=== PATIENT | female | born 1960 | race Caucasian/White ===

== ENCOUNTER 2023-01-23 10:53 | Emergency (ER) | payer OTHER, SELFPAY ==
[2023-01-23 10:59] VITALS: BP 121/83; PULSE 91; RESP 18; TEMP 36.7; O2SAT 88; BMI 21.5
--- NOTE | 2023-01-23 11:16 | XR_ITS ---
The [address] [address] Patient Name: THI VERA MRN: [id number] date: 1960 Sex: F Assigned Patient Location: ER Current Patient Location: ER Accession/Order Number: [id number] Exam Date: 01/23/2023 11:45 Report Date: 01/23/2023 13:19 At the request of: MIESHA BLACK Procedure: XR foot RT min 3V PROCEDURE: XR ankle RT min 3V, XR foot RT min 3V HISTORY: ankle injury ; acute right ankle and foot pain after falling COMPARISON: None. FINDINGS: BONES:Complete loss of the ankle joint space with possible osseous union. Moderate degenerative changes the midfoot and the second through 5th tarsal-metatarsal joints. Mild degenerative changes throughout the metatarsophalangeal and interphalangeal joints. SOFT TISSUES:Soft tissue swelling surrounding the ankle. EFFUSION:None visible. OTHER: Negative. XR/XR foot RT min 3V IMPRESSION: 1. Marked degenerative changes of the ankle; no appreciable acute abnormality. 2. Moderate degenerative changes of the foot; no appreciable acute abnormality. Electronically authenticated by: SHAWANDA PATEL Date: 01/23/2023 13:19
--- NOTE | 2023-01-23 11:16 | XR_ITS ---
The [address] [address] Patient Name: THI VERA MRN: [id number] date: 1960 Sex: F Assigned Patient Location: ER Current Patient Location: ER Accession/Order Number: [id number] Exam Date: 01/23/2023 11:45 Report Date: 01/23/2023 13:19 At the request of: MIESHA BLACK Procedure: XR ankle RT min 3V PROCEDURE: XR ankle RT min 3V, XR foot RT min 3V HISTORY: ankle injury ; acute right ankle and foot pain after falling COMPARISON: None. FINDINGS: BONES:Complete loss of the ankle joint space with possible osseous union. Moderate degenerative changes the midfoot and the second through 5th tarsal-metatarsal joints. Mild degenerative changes throughout the metatarsophalangeal and interphalangeal joints. SOFT TISSUES:Soft tissue swelling surrounding the ankle. EFFUSION:None visible. OTHER: Negative. XR/XR ankle RT min 3V IMPRESSION: 1. Marked degenerative changes of the ankle; no appreciable acute abnormality. 2. Moderate degenerative changes of the foot; no appreciable acute abnormality. Electronically authenticated by: SHAWANDA PATEL Date: 01/23/2023 13:19
--- NOTE | 2023-01-23 11:16 | XR_ITS ---
The [address] [address] Patient Name: THI VERA MRN: [id number] date: 1960 Sex: F Assigned Patient Location: ER Current Patient Location: ER Accession/Order Number: [id number] Exam Date: 01/23/2023 11:45 Report Date: 01/23/2023 12:50 At the request of: MIESHA BLACK Procedure: XR sacrum coccyx min 2V STUDY: XR sacrum coccyx min 2V, [id number] HISTORY: fall COMPARISON: None FINDINGS: No acute fracture, dislocation, or suspicious osseous lesion. Alignment at the sacrum and coccyx are within normal limits. Bilateral hip replacements. XR/XR sacrum coccyx min 2V IMPRESSION: No acute displaced fracture of the sacrum or coccyx. If there is clinical concern for nondisplaced fracture then recommend noncontrast CT of the pelvis for further evaluation. Electronically authenticated by: STEPHANIE HARRIS Date: 01/23/2023 12:50
--- NOTE | 2023-01-23 12:53 | ED.GENADUL1 ---
HPI - General Adult General Chief complaint: Extremity Injury, Lower Stated complaint: LOWER EXTREMITY INJURY RIGHT ANKLE Time Seen by Provider: 01/23/23 11:00 Source: patient Mode of arrival: Wheelchair Limitations: no limitations History of Present Illness HPI narrative: The patient fell yesterday while at a concert - she said that there was a lip on the floor that she tripped on - and landed onto her tailbone, also injured her right foot and right ankle as she fell. No other injuries. Pain localized to the medial left buttock and the medial and lateral right ankle and top of the right foot. She had prior right ankle fusion. Related Data Home Medications Medication Instructions Recorded Confirmed folic acid 1 mg tablet 1 mg PO DAILY 01/23/23 01/23/23 methotrexate sodium 2.5 mg tablet 2.5 mg PO .weekly 01/23/23 01/23/23 sulindac 200 mg tablet 200 mg PO DAILY 01/23/23 01/23/23 Allergies Allergy/AdvReac Type Severity Reaction Status Date / Time cephalexin [From Keflex] AdvReac Intermediate Verified 01/23/23 10:58 PFSH PFS Social History Smoking status: Never smoker Exam Narrative Exam Narrative: Nurses notes and vital signs reviewed and patient is not hypoxic. afebrile General: Well-appearing and in no apparent distress. Skin: Warm, dry, no pallor noted. No rash. Head: Normocephalic, atraumatic. Cardiovascular: Normal peripheral perfusion Respiratory: No accessory muscle use or respiratory distress. Back: No midline thoracic or lumbar vertebral tenderness. Medial left buttock. Musculoskeletal: Tenderness to the medial and lateral malleolus of the right ankle. Tenderness to the top of the right foot. No achilles deficit or heel tenderness. Patient has limited right ankle ROM at baseline. No right calf or popliteal tenderness, no right lower extremity edema/swelling Neurological: A&O x4. No cranial nerve dysfunction observed. No truncal ataxia. Moves all extremities. Sensation intact. Psychiatric: Cooperative and interactive. Normal mood and affect. Constitutional Vital Signs, click to edit/add: Last Vital Signs Temp 98.1 F 01/23/23 10:59 Pulse 91 H 01/23/23 10:59 Resp 18 01/23/23 10:59 BP 121/83 01/23/23 10:59 Pulse Ox 88 L 01/23/23 10:59 Course Vital Signs Vital signs: Vital Signs Temperature 98.1 F 01/23/23 10:59 Pulse Rate 91 H 01/23/23 10:59 Respiratory Rate 18 01/23/23 10:59 Blood Pressure 121/83 01/23/23 10:59 Pulse Oximetry 88 L 01/23/23 10:59 Temperature 98.1 F 01/23/23 10:59 Pulse Rate 91 H 01/23/23 10:59 Respiratory Rate 18 01/23/23 10:59 Blood Pressure 121/83 01/23/23 10:59 Pulse Oximetry 88 L 01/23/23 10:59 Medical Decision Making MDM Narrative Medical decision making narrative: XRays per radiologist did not reveal any acute fracture, dislocation or other worrisome findings. Patient given reassurance and the ED nurse applied an leonard wrap tot he right ankle - patient neurovascularly intact distally afterward. She was instructed to take tylenol and motrin as needed for pain. Imaging Data xr sacrum/coccyx: Attestation: I have reviewed the pertinent imaging results. Radiologist's impression: Patient Name: THI VERA MRN: [id number] date: 1960 Sex: F Assigned Patient Location: ER Current Patient Location: ER Accession/Order Number: [id number] Exam Date: 01/23/2023 11:45 Report Date: 01/23/2023 12:50 At the request of: MIESHA BLACK Procedure: XR sacrum coccyx min 2V STUDY: XR sacrum coccyx min 2V, [id number] HISTORY: fall COMPARISON: None FINDINGS: No acute fracture, dislocation, or suspicious osseous lesion. Alignment at the sacrum and coccyx are within normal limits. Bilateral hip replacements. IMPRESSION: No acute displaced fracture of the sacrum or coccyx. If there is clinical concern for nondisplaced fracture then recommend noncontrast CT of the pelvis for further evaluation. Electronically authenticated by: STEPHANIE HARRIS Date: 01/23/2023 12:50 xr foot & ankle: Radiologist's impression: Patient Name: THI VERA MRN: [id number] date: 1960 Sex: F Assigned Patient Location: ER Current Patient Location: ER Accession/Order Number: [id number] Exam Date: 01/23/2023 11:45 Report Date: 01/23/2023 13:19 At the request of: MIESHA WAYNE Procedure: XR foot RT min 3V PROCEDURE: XR ankle RT min 3V, XR foot RT min 3V HISTORY: ankle injury ; acute right ankle and foot pain after falling COMPARISON: None. FINDINGS: BONES:Complete loss of the ankle joint space with possible osseous union. Moderate degenerative changes the midfoot and the second through 5th tarsal-metatarsal joints. Mild degenerative changes throughout the metatarsophalangeal and interphalangeal joints. SOFT TISSUES:Soft tissue swelling surrounding the ankle. EFFUSION:None visible. OTHER: Negative. IMPRESSION: 1. Marked degenerative changes of the ankle; no appreciable acute abnormality. 2. Moderate degenerative changes of the foot; no appreciable acute abnormality. Electronically authenticated by: SHAWANDA PATEL Date: 01/23/2023 13:19 Discharge Plan Discharge Chief Complaint: Extremity Injury, Lower Clinical Impression: Contusion of buttock, Ankle sprain and strain Patient Disposition: Home, Self-Care Time of Disposition Decision: 13:53 Prescriptions / Home Meds: No Action folic acid 1 mg tablet 1 mg PO DAILY methotrexate sodium 2.5 mg tablet 2.5 mg PO .weekly sulindac 200 mg tablet 200 mg PO DAILY Instructions: Ankle Sprain (ED), Contusion in Adults (ED) Stand Alone Forms: Portal Instructions Referrals: FRANCHESKA ROGERS [Primary Care Provider] - 1 week
== END 2023-01-23 13:45 | disposition home or self-care (01) ==
PROVIDERS: Emergency Provider Emergency Medicine; PCP Family Medicine
DX: S93.401A Sprain of unspecified ligament of right ankle, initial encounter (principal); S96.911A Strain of unspecified muscle and tendon at ankle and foot level, right foot, initial encounter; W01.10XA Fall on same level from slipping, tripping and stumbling with subsequent striking against unspecified object, initial encounter; S30.0XXA Contusion of lower back and pelvis, initial encounter; Z98.1 Arthrodesis status; Z79.899 Other long term (current) drug therapy
CPT/HCPCS: 72220; 73610; 73630; 99284

== ENCOUNTER 2023-05-06 10:42 | Outpatient (OUT) | payer OTHER, SELFPAY ==
--- OUTSIDE RECORDS SUMMARY | 2023-05-06 10:49 | XMS_ITS | CCD ---
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 Repository Problems Problem Classification Problem Date Documented Da te Episodic/Chronic Calculus of urinary tract (1 source) Personal history of urinary calculi; Translations: [PERSONAL HISTORY OF URINARY CALCULI] Onset: 06-05-2022 Episodic E Codes: Fall (1 source) Fall from other furniture, initial encounter; Translations: [FALL FROM OTHER FURNITURE INITIAL] Onset: 06-05-2022 Episodic Nonspecific chest pain (3 sources) Other chest pain; Translations: [OTHER CHEST PAIN] Onset: 06-04-2022 Episodic Other aftercare (1 source) Other jail (current) drug therapy; Translations: [OTH AUTO JOB ESTIMATOR CURRENT DRUG THERAPY] Onset: 06-05-2022 Episodic Other connective tissue disease (1 source) Presence of artificial hip joint, bilateral; Translations: [PRESENCE ARTIFICIAL HIP JOINT BILAT] Onset: 06-05-2022 Chronic Rheumatoid arthritis and related disease (1 source) Rheumatoid arthritis, unspecified; Translations: [RHEUMATOID ARTHRITIS UNSPECIFIED] Onset: 06-05-2022 Chronic Superficial injury; contusion (2 sources) Contusion of left front wall of thorax, initial encounter; Translations: [Contusion of left great toe without damage to nail, initial encounter] Onset: 06-05-2022 Episodic Results Test Name Value Interpretation Reference Range Facil ity XR TOES LT MIN 2 Von 023 XR TOES LT MIN 2 V IMAGES REVIEWED: XR TOES LT MIN 2 V, XR RIBS LT PA CH COMPARISON: None available. CLINICAL INDICATION: Falls FINDINGS/IMPRESSION: No definite radiographic evidence of acute osseous abnormality of the left toes, although evaluation limited by lack of a true lateral view. Osteopenia, hallux valgus, scattered osteoarthritis most severe in the mid foot, and dorsomedial foot-first digit soft tissue swelling noted. No acute displaced left rib fractures seen. No radiographic evidence of acute cardiopulmonary abnormality. Electronically authenticated by: TARUN LOFTON Date: 2022-06-04 18:24 Normal [facility] Encounters Encounter Date Encounter Type Care Provider Facility Start: 06-04-2022 End: 06-04-[address] FRANCHESKA ROGERS Facility: Payers Date Payer Category Payer Unknown [id number] 1958 Private Health Insurance [id number] Summary Purpose Family History No Family History Records Found Advance Directives No Advanced Directives Records Found Additional Source Comments INFORMATION SOURCE (unrecogn ized section and content) DATE CREATED AUTHOR 06/05/2022 The [facility] FOR RECORDS PERTAINING TO PATIENTS WHO ARE OR HAVE BEEN ENROLLED IN A CHEMICAL DEPENDENCY/SUBSTANCEABUSE PROGRAM, SOME INFORMATION MAY BE OMITTED. This clinical summary was aggregated from multiple sources. Caution should be exercised in using it in the provision of clinical care. This summary normalizes information from multiple sources, and as a consequence, information in this document may materially change the coding, format and clinical context of patient data. In addition, data may be omitted in some cases. CLINICAL DECISIONS SHOULD BE BASED ON THE PRIMARY CLINICAL RECORDS. [facility]. provides no warranty or guarantee of the accuracy or completeness of information in this document.
--- NOTE | 2023-05-06 10:55 | US_ITS ---
The [address] [address] Patient Name: THI VERA MRN: [id number] date: 1960 Sex: F Assigned Patient Location: US Current Patient Location: Accession/Order Number: [id number] Exam Date: 05/06/2023 10:56 Report Date: 05/07/2023 08:37 At the request of: ELOISA TORRES Procedure: US soft tissue head and neck EXAM: US soft tissue head and neck HISTORY: Mass On Right Side Of Neck R22.1 COMPARISON: None. TECHNIQUE: Percutaneous ultrasound of right side of neck FINDINGS: 2 adjacent large, markedly hypoechoic structures within upper lateral right neck corresponding to patient's palpable lumps, largest is 6.4 x 3.8 x 2.3 cm; second largest is 4.9 x 3.9 x 2.3 cm. Small amount of internal blood flow within both lesions. Similar-appearing but smaller structures within right side of neck. US/US soft tissue head and neck IMPRESSION: 1. Nonspecific lesions, but suspect abnormally enlarged and abnormally hypoechoic lymph nodes. Patient history states that these have been present for one week. Consider follow-up ultrasound evaluation 2-3 weeks to document decrease in size/resolution. If lesions persists consider ultrasound-guided fine-needle aspiration. Electronically authenticated by: SHAWANDA PATEL Date: 05/07/2023 08:37
== END 2023-05-06 10:43 | disposition home or self-care (01) ==
LOC: US 10:47
PROVIDERS: PCP Family Medicine; Visit Provider Nurse Practitioner Family
DX: R59.9 Enlarged lymph nodes, unspecified (principal); R22.1 Localized swelling, mass and lump, neck
CPT/HCPCS: 76536

== ENCOUNTER 2023-05-14 16:00 | Outpatient (OUT) | payer OTHER, SELFPAY ==
[2023-05-14 17:03] LABS: Estimated GFR (African America >60 (>=60); Estimated GFR (Non-African Ame 57 (>=60)
== END 2023-05-14 16:01 | disposition home or self-care (01) ==
LOC: LAB 16:01
PROVIDERS: PCP Family Medicine; Visit Provider Nurse Practitioner Family
DX: R22.1 Localized swelling, mass and lump, neck (principal)
CPT/HCPCS: 36415; 82565

== ENCOUNTER 2023-05-18 17:42 | Emergency (ER) | payer OTHER, SELFPAY ==
[2023-05-18 17:54] VITALS: BP 141/78; PULSE 114; RESP 18; TEMP 36.8; O2SAT 98; BMI 22.5
--- NOTE | 2023-05-18 18:03 | US_ITS ---
The [address] [address] Patient Name: THI VERA MRN: [id number] date: 1960 Sex: F Assigned Patient Location: ER Current Patient Location: ER Accession/Order Number: [id number] Exam Date: 05/18/2023 18:19 Report Date: 05/18/2023 19:55 At the request of: ОЛЕГ YIP Procedure: US venous doppler UE LT US LEFT UPPER EXTREMITY VENOUS DUPLEX ULTRASOUND HISTORY: IV contrast infiltration left arm. COMPARISON: None. TECHNIQUE: Real-time ultrasound examination with permanent image recording was performed and reviewed on a PACS work station. Each vessel was evaluated for compressibility, Doppler flow, respiratory phasicity, and augmentation. FINDINGS: The internal jugular, subclavian, axillary, and brachial veins, radial and ulnar veins are compressible and patent. The basilic and cephalic veins and antecubital vein are compressible and patent. Normal respiratory phasicity and augmentation are present. There is no deep venous thrombosis. There is no superficial thrombophlebitis. There is some mild edema within the subcutaneous tissues likely due to infiltration. US/US venous doppler UE LT IMPRESSION: 1. No evidence of left upper extremity DVT or SVT. 2. Subcutaneous edema likely related to IV infiltration. Follow-up clinically and with conservative treatment for IV infiltration. Electronically authenticated by: ARNOLD MADDEN Date: 05/18/2023 19:55
--- NOTE | 2023-05-18 18:05 | ED_ITS ---
Documented by User: Tyler Gregory MD 05/18/23 18:06 HPI - Extremity Problem General Chief complaint: Extremity Problem, Nontraumatic Stated complaint: Post-Procedure Complications Time Seen by Provider: 05/18/23 17:56 Source: patient Mode of arrival: walk-in History of Present Illness HPI Narrative: 62-year-old female presents for swelling to the entire left arm. She had an IV today and contrast was injected to do a CAT scan. Apparently the IV infiltrated. After she got home her arm continued to swell and it is much worse than it was earlier. Related Data Home Medications ?Medication ?Instructions ?Recorded ?Confirmed folic acid 1 mg tablet 1 mg PO DAILY 01/23/23 01/23/23 methotrexate sodium 2.5 mg tablet 2.5 mg PO .weekly 01/23/23 01/23/23 sulindac 200 mg tablet 200 mg PO DAILY 01/23/23 01/23/23 Allergies Allergy/AdvReac Type Severity Reaction Status Date / Time cephalexin [From Keflex] AdvReac Intermediate Verified 01/23/23 10:58 Review of Systems ROS Narrative A ten point review of systems is negative except as noted above. PFSH PFSH Social History Smoking status: Never smoker Exam Narrative Exam Narrative: Nurses note and vital signs reviewed and patient is not hypoxic. General: The patient appears in no apparent distress. Patient is resting comfortably on cart. Skin: Warm, dry, no pallor noted. There is no rash noted. Head: Normocephalic, atraumatic Eye: Normal conjunctiva, no drainage Ears, Nose, Mouth, and Throat: oral mucosa is moist. Nares patent. Cardiovascular: Regular Rate and Rhythm Respiratory: Patient is in no distress, no accessory muscle use, lungs are clear to auscultation, no wheezing, rales or rhonchi Back: non-tender GI: Soft and nontender Musculoskeletal: The entire left arm is swollen from her hand to the shoulder. There is bruising in the left antecubital fossa. Capillary refill is appropriate Neurological: A&O, normal speech Psychiatric: Cooperative Constitutional Vital Signs, click to edit/add: Last Vital Signs Temp 98.2 F 05/18/23 17:54 Pulse 114 H 05/18/23 17:54 Resp 18 05/18/23 17:54 BP 141/78 05/18/23 17:54 Pulse Ox 98 05/18/23 17:54 Course Vital Signs Vital signs: Vital Signs Temperature 98.2 F 05/18/23 17:54 Pulse Rate 114 H 05/18/23 17:54 Respiratory Rate 18 05/18/23 17:54 Blood Pressure 141/78 05/18/23 17:54 Pulse Oximetry 98 05/18/23 17:54 Temperature 98.2 F 05/18/23 17:54 Pulse Rate 114 H 05/18/23 17:54 Respiratory Rate 18 05/18/23 17:54 Blood Pressure 141/78 05/18/23 17:54 Pulse Oximetry 98 05/18/23 17:54 Discharge Plan Discharge Stand Alone Forms: Portal Instructions Chief Complaint: Extremity Problem, Nontraumatic Clinical Impression: Edema of left upper arm Patient Disposition: Home, Self-Care Prescriptions / Home Meds: No Action folic acid 1 mg tablet 1 mg PO DAILY methotrexate sodium 2.5 mg tablet 2.5 mg PO .weekly sulindac 200 mg tablet 200 mg PO DAILY Print Language: [place] Verdean Instructions: Edema (ED) Additional Instructions: keep arm elevated as much as possible Referrals: FRANCHESKA ROGERS [Primary Care Provider] - 1 week Documented by User: Josafat Chirinos MD 05/18/23 20:20 HPI - Extremity Problem General Chief complaint: Extremity Problem, Nontraumatic Stated complaint: Post-Procedure Complications Time Seen by Provider: 05/18/23 17:56 Related Data Home Medications ?Medication ?Instructions ?Recorded ?Confirmed folic acid 1 mg tablet 1 mg PO DAILY 01/23/23 01/23/23 methotrexate sodium 2.5 mg tablet 2.5 mg PO .weekly 01/23/23 01/23/23 sulindac 200 mg tablet 200 mg PO DAILY 01/23/23 01/23/23 Allergies Allergy/AdvReac Type Severity Reaction Status Date / Time cephalexin [From Keflex] AdvReac Intermediate Verified 01/23/23 10:58 PFSH PFSH Social History Smoking status: Never smoker Exam Constitutional Vital Signs, click to edit/add: Last Vital Signs Temp 98.2 F 05/18/23 17:54 Pulse 114 H 05/18/23 17:54 Resp 18 05/18/23 17:54 BP 141/78 05/18/23 17:54 Pulse Ox 98 05/18/23 17:54 Course Vital Signs Vital signs: Vital Signs Temperature 98.2 F 05/18/23 17:54 Pulse Rate 114 H 05/18/23 17:54 Respiratory Rate 18 05/18/23 17:54 Blood Pressure 141/78 05/18/23 17:54 Pulse Oximetry 98 05/18/23 17:54 Temperature 98.2 F 05/18/23 17:54 Pulse Rate 114 H 05/18/23 17:54 Respiratory Rate 18 05/18/23 17:54 Blood Pressure 141/78 05/18/23 17:54 Pulse Oximetry 98 05/18/23 17:54 MDM - Extremity (Nontraumatic) MDM Narrative Medical decision making narrative: care transferred at change of shift. Patient has a procedure at outside hospital and her IV left arm infiltrated. Venous Doppler ordered at change of shift doppler without evidence of DVT. Patient informed of diagnosis and discharged home Discharge Plan Discharge Stand Alone Forms: Portal Instructions Chief Complaint: Extremity Problem, Nontraumatic Clinical Impression: Edema of left upper arm Patient Disposition: Home, Self-Care Prescriptions / Home Meds: No Action folic acid 1 mg tablet 1 mg PO DAILY methotrexate sodium 2.5 mg tablet 2.5 mg PO .weekly sulindac 200 mg tablet 200 mg PO DAILY Print Language: [place] Instructions: Edema (ED) Additional Instructions: keep arm elevated as much as possible Referrals: FRANCHESKA ROGERS [Primary Care Provider] - 1 week
[2023-05-18 20:21] VITALS: PULSE 70; RESP 18; O2SAT 97
== END 2023-05-18 20:23 | disposition home or self-care (01) ==
PROVIDERS: Emergency Provider Internal Medicine; PCP Family Medicine
DX: R60.9 Edema, unspecified (principal); Z79.899 Other long term (current) drug therapy
CPT/HCPCS: 93971; 99285

== ENCOUNTER 2023-05-26 09:31 | Emergency (ER) | payer OTHER, SELFPAY ==
[2023-05-26 09:43] VITALS: BP 148/72; PULSE 101; TEMP 36.8; O2SAT 98
--- NOTE | 2023-05-26 09:58 | ED_ITS ---
HPI HPI - General Adult General Chief complaint: Dizziness Stated complaint: UNSTEADY ON FEET Time Seen by Provider: 05/26/23 09:46 Source: patient Mode of arrival: Wheelchair Limitations: no limitations History of Present Illness HPI narrative: 62-year-old female presents for an issue with her neck. She has had a mass on the right side of her neck and she feels like it is getting bigger. She had an outpatient CAT scan of her neck performed at another facility. Family shows me a report on their phone that shows that it is concerning for malignancy. No fever or difficulty breathing or swallowing. She has a history of severe arthritis and has been somewhat unsteady on her feet but this is an ongoing issue. She has not yet seen the ENT physician. Related Data Home Medications ?Medication ?Instructions ?Recorded ?Confirmed folic acid 1 mg tablet 1 mg PO DAILY 01/23/23 01/23/23 methotrexate sodium 2.5 mg tablet 2.5 mg PO .weekly 01/23/23 01/23/23 sulindac 200 mg tablet 200 mg PO DAILY 01/23/23 01/23/23 Allergies Allergy/AdvReac Type Severity Reaction Status Date / Time cephalexin [From Keflex] AdvReac Intermediate Verified 01/23/23 10:58 Opioid HPI Opioid Management Most Recent Opioid Data: Last Pain Scale 5 01/23/23 11:06 Review of Systems ROS Narrative A ten point review of systems is negative except as noted above. PFSH PFSH Social History Smoking status: Never smoker Exam Narrative Exam Narrative: Nurses note and vital signs reviewed and patient is not hypoxic. General: The patient appears in no apparent distress. Patient is resting comfortably on cart. Skin: Warm, dry, no pallor noted. There is no rash noted. Head: Normocephalic, atraumatic Eye: Normal conjunctiva, no drainage Ears, Nose, Mouth, and Throat: oral mucosa is moist. Nares patent. She is handling her oral secretions well. There is a mass on the right side of her neck. No overlying erythema. No fluctuance Cardiovascular: Regular Rate and Rhythm Respiratory: Patient is in no distress, no accessory muscle use, lungs are clear to auscultation, no wheezing, rales or rhonchi Back: non-tender GI: Soft and nontender Musculoskeletal: No joint swelling Neurological: A&O, normal speech Psychiatric: Cooperative Constitutional Vital Signs, click to edit/add: Last Vital Signs Temp 98.2 F 05/26/23 09:43 Pulse 101 H 05/26/23 09:43 Resp 17 05/26/23 09:43 BP 148/72 H 05/26/23 09:43 Pulse Ox 98 05/26/23 09:43 O2 Del Method Room Air 05/26/23 09:43 Course Vital Signs Vital signs: Vital Signs Temperature 98.2 F 05/26/23 09:43 Pulse Rate 101 H 05/26/23 09:43 Respiratory Rate 17 05/26/23 09:43 Blood Pressure 148/72 H 05/26/23 09:43 Pulse Oximetry 98 05/26/23 09:43 Oxygen Delivery Method Room Air 05/26/23 09:43 Temperature 98.2 F 05/26/23 09:43 Pulse Rate 101 H 05/26/23 09:43 Respiratory Rate 17 05/26/23 09:43 Blood Pressure 148/72 H 05/26/23 09:43 Pulse Oximetry 98 05/26/23 09:43 Oxygen Delivery Method Room Air 05/26/23 09:43 Medical Decision Making MDM Narrative Medical decision making narrative: Blood work nonspecific. I spoke to Dr. Washington and the patient has an appointment with him in 8 days. The probable need for biopsy was discussed with the patient and her family. Treatment diagnosis and follow-up were discussed thoroughly. CT performed at outside facility suggest malignancy. Lab Data Lab results reviewed: Yes I reviewed the patient's lab results Labs: Lab Results 05/26/23 Range/Units 10:10 WBC 5.0 (4.0-11.0) 10^3/uL RBC 3.27 L (4.20-5.40) 10^6/uL Hgb 10.3 L (12.0-16.0) g/dL Hct 31.7 L (36.0-48.0) % MCV 96.9 (81.0-99.0) fL MCH 31.5 (26.7-34.0) pg MCHC 32.5 (29.9-35.2) g/dL RDW 14.0 (11.0-15.0) % Plt Count 221 (150-450) 10^3/uL MPV 9.2 L (9.5-13.5) fL Seg Neuts % (Manual) 86.0 Lymphocytes % (Manual) 3.0 L (20.5-60.0) % Monocytes % (Manual) 7.0 (1.7-12.0) % Eosinophils % (Manual) 4.0 (0.9-7.0) % Basophils % (Manual) 0.0 L (0.2-2.0) % Neutrophils # (Manual) 4.30 (1.4-6.5) 10^3/uL Lymphocytes # (Manual) 0.15 L (1.20-3.80) 10^3/uL Monocytes # (Manual) 0.35 (0.30-0.80) 10^3/uL Eosinophils # (Manual) 0.20 (0.00-0.70) 10^3/uL Basophils # (Manual) 0.00 (0.00-0.10) 10^3/uL Poikilocytosis 1+ Ovalocytes 1+ Sodium 137 (136-145) mmol/L Potassium 3.6 (3.5-5.1) mmol/L Chloride 99 (98-107) mmol/L Carbon Dioxide 30.2 (21.0-32.0) mmol/L Anion Gap 11.4 BUN 19.0 H (7.0-18.0) mg/dL Creatinine 1.20 H (0.55-1.02) mg/dL Est GFR ( Amer) 55 L (>=60) Est GFR (Non-Af Amer) 46 L (>=60) BUN/Creatinine Ratio 15.8 Glucose 92 (74-106) mg/dL Calcium 12.0 H (8.5-10.1) mg/dL Amylase 50 (25-115) U/L Discharge Plan Discharge Stand Alone Forms: Portal Instructions Chief Complaint: Dizziness Clinical Impression: Mass in neck Patient Disposition: Home, Self-Care Time of Disposition Decision: 11:25 Condition: Good Mode of Transportation: Private Vehicle Prescriptions / Home Meds: No Action folic acid 1 mg tablet 1 mg PO DAILY methotrexate sodium 2.5 mg tablet 2.5 mg PO .weekly sulindac 200 mg tablet 200 mg PO DAILY Print Language: Kiswahili Instructions: Soft Tissue Mass (ED) Additional Instructions: See Dr. Washington at your appointment Referrals: FRANCHESKA ROGERS [Primary Care Provider] - 1 week
--- OUTSIDE RECORDS SUMMARY | 2023-05-26 09:58 | XMS_ITS | CCD ---
Author Organization [facility] Care Team Providers Care Cafeteria Attendant Name Role Phone DR FRANCHESKA ROGERS Primary Care Unavailable PAY ., DR MEIER Attending Unavailable PAY ., DR MEIER Consulting Unavailable PAY ., DR MEIER Admitting Unavailable GRECHNY ., STEFFANY WINCHESTER Consulting UnavailTARUN Chance Consulting Unavailable ELOISA TORRES Attending Unavailable ELOISA TORRES Referring Unavailable Allergies Allergy Classification Reported Allergen(s) Allergy Type Date of Onset Reaction(s) Facility (1 source) Cephalexin Drug Allergy 12-14-2014 [facility] Repository Problems Problem Classification Problem Date Documented [...] 06-04-2022 Episodic Other aftercare (1 source) Other custodial (current) drug therapy; Translations: [OTH [facility] CURRENT DRUG THERAPY] Onset: 06-05-2022 Episodic Other [...] Name Value Interpretation Reference Range Facil ity CT SOFT TISSUE NECK WO IV CO Luke 05-18-2023 CT SOFT TISSUE NECK WO IV CONTRAST EXAM: CT SOFT TISSUE NECK WO IV CONTRAST History: Neck mass Technique: Multiple contiguous axial images were obtained of the soft tissues of the neck without contrast. Multiplanar reformats were obtained. All CT scans at this facility use dose modulation, iterative reconstruction, and/or weight based dosing when appropriate to reduce radiation dose to as low as reasonably achievable. Comparison: None available Findings: Evaluation of the soft tissues of the neck is limited without contrast. There is a large mass in the right side of the neck extending from the inferior margin of the superficial lobe of the parotid gland to the level of the thyroid gland. This measures approximately 6 cm in AP dimension by 4 cm in transverse dimension by 10 cm in craniocaudal dimension. No left-sided cervical chain lymphadenopathy. Mildly enlarged superior mediastinal lymph nodes are identified measuring up to approximately 12 mm in long axis by 11 mm in short axis. Enlarged right subclavian lymph nodes are also identified, the largest of which measures approximately 31 mm in long axis by 17 mm in short axis.. No overt abnormality of the parotid glands. The right-sided neck mass does not appear to definitively involve the right parotid gland. The thyroid gland is within normal limits. The oral cavity, tongue, and tongue base appear within normal limits. Submandibular glands appear unremarkable. Nasopharynx and nasal cavity appear unremarkable. The bilateral hot knife foxing cutter, parapharyngeal, carotid and retropharyngeal spaces appear unremarkable. Perivertebral spaces appear unremarkable. No cervical chain lymphadenopathy is seen. The epiglottis, vallecula and piriform sinuses, and larynx are poorly visualized secondary to motion artifact. No overt abnormality of the structures identified given motion artifact Visualized portion of the globes and orbits appear unremarkable. The upper mediastinum appears grossly unremarkable and the lung apices are clear. No supraclavicular lymphadenopathy. Visualized paranasal sinuses are clear. Mastoid air cells and middle ear cavities are clear. Degenerative changes of the cervical spine. Degenerative changes of the temporomandibular joints. IMPRESSION: Right neck mass measuring approximately 6 x 4 x 10 cm is most concerning for malignancy which must be excluded. Enlarged right supraclavicular lymph nodes and upper mediastinal lymph nodes. ELECTRONICALLY SIGNED BY: Daniel Cornejo, DO Normal Not Available XR TOES LT MIN 2 Von 023 [...] by: TARUN LOFTON Date: 2022-06-04 18:24 Normal [facility] Encounters Encounter Date Encounter Type Care Provider Facility Start: 05-18-2023 End: 05-19-2023 ambulatory ELOISA TORRES Not Available Start: 05-05-2023 End: 05-05-2023 ambulatory ELOISA TORRES Not Available Start: 06-04-2022 End: 06-04-[address] FRANCHESKA ROGERS Facility: Payers Date Payer Category Payer Unknown [id number] [id number] 1960 Unknown [id number] [id number] [id number] 1960 Unknown [id number] [id number] [id number] 1958 Private Health Insurance [id number] Summary Purpose Family History No Family History Records FoundNo Family History Records Found Advance Directives No Advanced Directives Records FoundNo Advanced Directives Records Found Additional Source Comments INFORMATION SOURCE (unrecogn ized section and content) DATE CREATED AUTHOR 06/05/2022 [facility] DATE CREATED AUTHOR 'S ORGANIZ ATJEVON 05/22/2023 [facility] EPIC FOR RECORDS PERTAINING TO PATIENTS WHO ARE [...] BE BASED ON THE PRIMARY CLINICAL RECORDS. [facility]. provides no warranty or guarantee of the accuracy or completeness of information in this document.
[2023-05-26 10:30] LABS: Amylase 50 U/L (25-115); Anion Gap 11.4; BUN Creatinine Ratio 15.8; Carbon Dioxide 30.2 mmol/L (21.0-32.0); Chloride 99 mmol/L (98-107); Estimated GFR (African America 55 (>=60); Estimated GFR (Non-African Ame 46 (>=60); Glucose 92 mg/dL (74-106); Potassium 3.6 mmol/L (3.5-5.1); Sodium 137 mmol/L (136-145)
[2023-05-26 10:37] LABS: Hematocrit 31.7 % (36.0-48.0); Hemoglobin 10.3 g/dL (12.0-16.0); Mean Corpuscular HGB Conc 32.5 g/dL (29.9-35.2); Mean Corpuscular Hemoglobin 31.5 pg (26.7-34.0); Mean Corpuscular Volume 96.9 fL (81.0-99.0); Mean Platelet Volume 9.2 fL (9.5-13.5); Platelet Count 221 10^3/uL (150-450); Red Blood Count 3.27 10^6/uL (4.20-5.40)
--- NOTE | 2023-05-26 10:52 | PC.NURSE ---
0950 - Pt being seen for worrisome lump that is growing rapidly on R side of neck. has been getting outpt treatment including US, CT scan and bloodwork. Pt worried about it closing off her airway -- denies any trouble swallowing or breathing at this time.
[2023-05-26 11:07] LABS: Lymphocytes Absolute Manual 0.15 10^3/uL (1.20-3.80)
[2023-05-26 11:08] LABS: Monocytes Absolute Manual 0.35 10^3/uL (0.30-0.80)
[2023-05-26 11:09] LABS: Ovalocytes 1+; Poikilocytosis 1+
== END 2023-05-26 11:34 | disposition home or self-care (01) ==
PROVIDERS: Emergency Provider Emergency Medicine; PCP Family Medicine
DX: R22.1 Localized swelling, mass and lump, neck (principal); Z79.899 Other long term (current) drug therapy
CPT/HCPCS: 36415; 80048; 82150; 85007; 85027; 99283

== ENCOUNTER 2023-06-09 08:30 | Day surgery (SDC) | payer OTHER, SELFPAY ==
--- NOTE | 2023-06-09 08:40 | US_ITS ---
[address] [address] Patient Name: THI VERA MRN: [id number] date: 1960 Sex: F Assigned Patient Location: US Current Patient Location: US Accession/Order Number: [id number] Exam Date: 06/09/2023 08:41 Report Date: 06/09/2023 10:48 At the request of: ROCAEL CHURCHILL Procedure: US biopsy lymph node EXAMINATION: US biopsy lymph node HISTORY: Right Cervical Lymphadenopathy COMPARISON: No relevant comparison available. TECHNIQUE: After obtaining informed consent, ultrasound-guided fine needle aspiration was performed in the usual sterile manner. FINDINGS: IMAGING: Ultrasound. BIOPSY NEEDLE: 19-gauge 6 cm Temno guide. 20-gauge 11 cm Temno spring loaded coaxial core biopsy needle LOCATION: 6.4 cm right neck mass SPECIMEN TYPE: 4 core samples LOCAL ANESTHETIC: 5 cc 1% buffered lidocaine. COMPLICATIONS: None. LABORATORY: Prepared slide smears and washings for cell block evaluation. OTHER: Negative. PATHOLOGY: Pending. An addendum will be added when results are available. US/US biopsy lymph node IMPRESSION: 1. Uneventful ultrasound guided fine needle aspiration (FNA). 2. Pathology and flow cytometry results are pending. Electronically authenticated by: SHAWN BRIDGES Date: 06/09/2023 10:48
[2023-06-09 08:50] VITALS: BP 104/53; PULSE 112; O2SAT 94
--- OUTSIDE RECORDS SUMMARY | 2023-06-09 08:53 | XMS_ITS | CCD ---
Author Organization [facility] Care Team Providers Care Preschool Education Director Name Role Phone DR FRANCHESKA ROGERS Primary Care Unavailable PAY ., DR MEIER Attending Unavailable PAY ., DR MEIER Consulting Unavailable PAY ., DR MEIER Admitting Unavailable GRECHNY ., STEFFANY WINCHESTER Consulting UnavailTARUN Chance Consulting Unavailable ELOISA TORRES Attending Unavailable ELOISA TORRES Referring Unavailable ROCAEL CHURCHILL Attending Unavailable Allergies Allergy Classification Reported Allergen(s) Allergy Type Date of Onset Reaction(s) Facility (1 source) Cephalexin Drug Allergy 12-14-2014 [facility] Repository Problems Problem Classification Problem Date [...] 06-04-2022 Episodic Other aftercare (1 source) Other terminal clerk (current) drug therapy; Translations: [OTH ENVIRONMENTAL SERVICES WORKER CURRENT DRUG THERAPY] Onset: 06-05-2022 Episodic Other [...] CT SOFT TISSUE NECK WO IV CO NTRASTon 05-18-2023 CT SOFT TISSUE NECK WO IV [...] and nasal cavity appear unremarkable. The bilateral motor checker, parapharyngeal, carotid and retropharyngeal spaces appear unremarkable. [...] mediastinal lymph nodes. ELECTRONICALLY SIGNED BY: Daniel J Chantal, DO Normal Not Available XR TOES LT [...] by: TARUN LOFTON Date: 2022-06-04 18:24 Normal [facility] Encounters Encounter Date Encounter Type Care Provider Facility Start: 06-03-2023 End: 06-03-2023 ambulatory ROCAEL CHURCHILL Not Available Start: 05-18-2023 End: 05-19-2023 ambulatory ELOISA TORRES Not Available Start: 05-05-2023 End: 05-05-2023 ambulatory ELOISA TORRES Not Available Start: 06-04-2022 End: 06-04-[address] FRNACHESKA ROGERS Facility: Payers Date Payer Category Payer Unknown [id number] [id number] [id number] 1960 Unknown [id number] 2.16.84 [id number] 1960 Unknown [id number] [id number] [id number] 1960 Unknown [id number] [id number] [id number] 1958 Private Health Insurance [id number] Summary Purpose Family History No Family History Records FoundNo Family History Records Found Advance Directives No Advanced Directives Records FoundNo Advanced Directives Records Found Additional Source Comments INFORMATION SOURCE (unrecogn ized section and content) DATE CREATED AUTHOR 06/05/2022 [facility] DATE CREATED AUTHOR 'S ORGANIZ ATION 06/04/2023 [facility] EPIC FOR RECORDS PERTAINING TO PATIENTS [...] BE BASED ON THE PRIMARY CLINICAL RECORDS. [facility]. provides no warranty or guarantee of the accuracy or completeness of information in this document.
[2023-06-09] MEDS: LIDOCAINE HCL 10 ML, SODIUM BICARBONATE 1 MEQ INJ (09:40)
--- NOTE | 2023-06-09 15:48 | SUR.PREOP ---
06/04/23 Pt instructed on procedure, date, time, and prep.
== END 2023-06-09 10:15 | disposition home or self-care (01) ==
PROVIDERS: Radiology Diagnostic Radiology; PCP Family Medicine; Visit Provider Otolaryngology
DX: R59.0 Localized enlarged lymph nodes (principal)
CPT/HCPCS: 38505; 88305; 88341; 88342